=== PATIENT | male | born 1985 | race Caucasian/White ===

== ENCOUNTER 2020-01-20 19:24 | Emergency (ER) | payer SELFPAY ==
--- NOTE | 2020-01-20 19:26 | UC ---
Skin Complaint HPI - HPI Summary HPI Summary: Patient is a 34 year old male, who presents today to the urgent care with a rash for past 4 to 5 days. Right shoulder blade and right chest wall now radiating both front and back. Pinkish, no drainage. No sick contacts. He denies any contact with any poison rubén. Denies any fever, chills, cough chest pain or shortness of breath. Denies any abdominal pain , nausea or vomiting , diarrhea or constipation. Patient tried ibuprofen last night without much relief. - History of Current Complaint Time Seen by Provider: 01/20/20 19:25 Stated Complaint: SKIN ISSUE Hx Obtained From: Patient - Allergy/Home Medications Allergies/Adverse Reactions: Allergies Allergy/AdvReac Type Severity Reaction Status Date / Time No Known Allergies Allergy Verified 01/20/20 19:34 Home Medications: Home Medications [facility] 1 udc TOPICAL ONCE PRN 01/20/20 [History] Ibuprofen TAB* [Advil TAB*] 600 mg PO Q6H PRN 01/20/20 [History Confirmed ] ValACYclovir (*) [Valtrex 1 GM(*)] 1 gm PO TID 7 Days #21 tab 01/20/20 [Rx] PMH/Surg Hx/FS Hx/Imm Hx - Additional Past Medical History Additional PMH: Past Medical History : Mononucleosis, 3 herniated disks and left wrist fracture Past Surgical History: No Past History of Procedure Family History : None Social History : Rare alcohol, former smoker, no drug use. Previously Healthy: Yes - Family History Known Family History: Positive: None Review of Systems All Other Systems Reviewed And Are Negative: Yes Constitutional: Positive: Negative Skin: Positive: Rash - Increased vesicular rash on the right lateral chest wall Eyes: Positive: Negative ENT: Positive: Negative Respiratory: Positive: Negative Cardiovascular: Positive: Negative Gastrointestinal: Positive: Negative Genitourinary: Positive: Negative Motor: Positive: Negative Neurovascular: Positive: Negative Musculoskeletal: Positive: Negative Neurological/Mental Status: Positive: Negative Psychological: Positive: Negative Is Patient Immunocompromised?: No Physical Exam - Summary Physical Exam Summary: Vital Signs Reviewed: Yes A+Ox3, no distress Eyes: Conjunctiva Clear ENT: Hearing grossly normal neck: supple Respiratory: Positive: No respiratory distress, No accessory muscle use Cardiovascular: skin color reflect adequate perfusion Musculoskeletal Exam: ALDRIDGE x 4 without difficulty Neurological: Positive: Alert, ambulatory without difficulty Psychological: Positive: Normal Response To Family Skin: Positive: Right lateral chest wall and on the posterior and aspect of the chest has noticeable pinkish vesicular rash. Tender to palpate. No drainage or abscess noted Triage Information Reviewed: Yes Vital Signs Reviewed: Yes Course/Dx - Course Course Of Treatment: During the visit today, we discussed the findings and further plan. I suspect shingles. Does not appear to be bacterial infection . Swab obtained from the vesicular eruption. Plan to treat it with Valtrex. I will prescribe the medication to the pharmacy . Advised him to use Benadryl as needed for itching and that somebody will call him with the test results. Since he does not have a primary care doctor at this time I advised him to follow up for recheck in 3-4 days if no better Patient expressed understanding . - Diagnoses Provider Diagnosis: Shingles Discharge ED - Sign-Out/Discharge Documenting (check all that apply): Patient Departure All imaging exams completed and their final reports reviewed: No Studies - Discharge Plan Condition: Stable Disposition: HOME Prescriptions: ValACYclovir (*) [Valtrex 1 GM(*)] 1 gm PO TID 7 Days #21 tab Patient Education Materials: Shingles (ED) Referrals: No Primary Care Phys,NOPCP [Primary Care Provider] - Additional Instructions: Please start taking the medication as prescribed to the pharmacy . You can take Benadryl for itching. Precautions as discussed. Somebody will call you with the lab results if positive or any change in medication needs to be advised. Your blood pressure slightly high in Urgent care today , plan follow up with PCP for better control Since you don't have a primary care doctor please return here for recheck in 3- 4 days if no better for recheck Return to Urgent care / ER if symptoms get worse. - Billing Disposition and Condition Condition: STABLE Disposition: Home
[2020-01-20 19:44] VITALS: BP 134/94
[2020-01-22 23:14] LABS: Varicella Zoster Result Positive (Negative); Varicella Zoster Source LATERAL CHEST WALL
--- NOTE | 2020-01-23 08:14 | UC ---
- Progress Note Progress Note: please call the pt. + shingles cont. with the current meds follow up as needed Course/Dx - Diagnoses Provider Diagnoses: Shingles Discharge ED - Sign-Out/Discharge Documenting (check all that apply): Patient Departure All imaging exams completed and their final reports reviewed: No Studies - Discharge Plan Condition: Stable Disposition: HOME Prescriptions: ValACYclovir (*) [Valtrex 1 GM(*)] 1 gm PO TID 7 Days #21 tab Patient Education Materials: Topher (ED) Referrals: No Primary Care Phys,NOPCP [Primary Care Provider] - Additional Instructions: Please start taking the medication as prescribed to the pharmacy . You can take Benadryl for itching. Precautions as discussed. Somebody will call you with the lab results if positive or any change in medication needs to be advised. Your blood pressure slightly high in Urgent care today , plan follow up with PCP for better control Since you don't have a primary care doctor please return here for recheck in 3- 4 days if no better for recheck Return to Urgent care / ER if symptoms get worse. - Billing Disposition and Condition Condition: STABLE Disposition: Home
== END 2020-01-20 20:08 | disposition home or self-care (01) ==
LOC: UCCORT 19:24
DX: B02.9 Zoster without complications (principal)
CPT/HCPCS: 87798; 99202; G0463